=== PATIENT | female | born 1985 | race African-American/Black ===

== ENCOUNTER 2020-10-24 09:57 | Outpatient (CLI) | payer OTHER ==
[2020-10-24 17:52] LABS: SARS-CoV-2 PCR by NAA Not Detected (NotDetected)
== END 2020-10-24 09:58 | disposition home or self-care (01) ==
LOC: CSHLAB 09:57
PROVIDERS: ATTEND Student in an Organized Health Care Education/Training Program
DX: Z20.822 Contact with and (suspected) exposure to COVID-19 (principal)
CPT/HCPCS: 87635; U0003; U0005

== ENCOUNTER 2021-12-31 15:34 | Emergency (ER) | payer BC, OTHER, SELFPAY ==
[2021-12-31 16:53] LABS: Bilirubin Neg (Negative); Blood, Urine 50 (Negative); Clarity Clear (Clear); Glucose, Urine (Dipstick) Normal (Negative); Ketone, Urine Negative (Negative); Leukocyte Negative (Negative); Nitrite Negative (Negative); Protein, Urine (Dipstick) 15 mg/dl (Neg-Trace)
[2021-12-31 16:56] LABS: #Eosinphils 0.1 10x3/uL (0.0-0.5); #Monocytes 0.6 10x3/uL (0.0-1.1); #Neutrophils 3.8 10x3/uL (1.5-8.4); %Basophils 0.6 % (0.0-2.0); %Eosinophils 0.9 % (0.0-6.0); %Lymphocytes 32.6 % (18.0-47.0); %Monocytes 8.9 % (0.0-10.0); %Neutrophils 56.7 % (40.0-75.0); Hemoglobin 11.2 g/dL (12.0-15.5); Mean Corpuscular HGB CONC 33.5 g/dL (32.0-36.0); Mean Corpuscular Hemoglobin 31.8 pg (27.0-33.0); Mean Corpuscular Volume 94.9 fl (81.6-98.3); Mean Platelet Volume 8.6 fl (7.4-10.4); Platelet Count 372 10x3/uL (150-450); RBC Distribution Width 13.2 % (11.5-14.5); Red Blood Cell (RBC) Count 3.52 10x6/uL (3.90-5.03); White Blood Cell (WBC) Count 6.7 10x3/uL (3.5-10.5)
[2021-12-31 16:59] LABS: Squamous Epithelial 0-3 HPF (0-3); WBC/HPF 0-3 HPF (0-3)
[2021-12-31 17:00] LABS: Bacteria/HPF None Seen HPF (None Seen)
== END 2021-12-31 17:57 | disposition home or self-care (01) ==
LOC: CSHERS 15:34
DX: O20.9 Hemorrhage in early pregnancy, unspecified (principal); O16.1 Unspecified maternal hypertension, first trimester; Z3A.12 12 weeks gestation of pregnancy
CPT/HCPCS: 36415; 76856; 81003; 81015; 84702; 85025; 86900; 86901

== ENCOUNTER 2024-05-11 15:15 | Inpatient (IN) | payer OTHER ==
[2024-05-11 16:08] VITALS: BMI 33.4
[2024-05-11] MEDS ORDERED: hydrALAZINE 20 MG/ML VIAL SLOW IVP PRN (16:37)
[2024-05-11] MEDS: Acetaminophen 500 MG TAB PO SCH (17:32)
[2024-05-11 17:55] LABS: Influenza A by NAA Not Detected (NotDetected); Influenza B by NAA Not Detected (NotDetected); RSV by NAA Not Detected (NotDetected); SARS-CoV-2 NAA Rapid Test Not Detected (NotDetected)
[2024-05-11 18:22] LABS: Fetal Membranes Rupture No Membranes Rupture (No Rupture)
[2024-05-11 19:07] LABS: Bilirubin Neg (Negative); Blood, Urine Negative (Negative); Clarity Slightly Cloudy (Clear); Glucose, Urine (Dipstick) Normal (Negative); Ketone, Urine 5 mg/dL (Negative); Leukocyte 500 (Negative); Nitrite Negative (Negative); Protein, Urine (Dipstick) 30 mg/dl (Neg-Trace); Specific Gravity, Urine 1.025 (1.005-1.030)
[2024-05-11 19:13] LABS: CAUTI Indications for Culture Pregnancy; RBC/HPF 0-3 HPF (0-3)
[2024-05-11 19:14] LABS: Bacteria/HPF 2+ HPF (None Seen); Calcium Oxalate Crystals Rare HPF (None Seen); Mucous/LPF 2+ LPF (<2+)
[2024-05-11 19:17] LABS: Urine Culture Reflex Yes Yes
[2024-05-11] MEDS: Lactated Ringer's 1,000 ML IV SCH (19:37)
[2024-05-11] MEDS: metroNIDAZOLE 500 MG TAB PO SCH (21:58)
[2024-05-11] MEDS: Cephalexin 500 MG CAP PO SCH (21:58)
[2024-05-11] MEDS: Clotrimazole 2% 3 Day Vag Cr 22.2 GM TUBE VAG SCH (22:55)
[2024-05-12 02:46] LABS: #Basophils 0.02 10x3/uL (0.0-0.2); #Eosinophils 0.15 10x3/uL (0.0-0.5); #Monocytes 0.68 10x3/uL (0.0-1.1); #Neutrophils 4.88 10x3/uL (1.5-8.4); %Basophils 0.3 % (0.0-2.0); %Eosinophils 1.9 % (0.0-6.0); %Lymphocytes 26.3 % (18.0-47.0); %Monocytes 8.6 % (0.0-10.0); %Neutrophils 61.9 % (40.0-75.0); Hematocrit 31.8 % (34.9-44.5); Mean Corpuscular HGB CONC 34.6 g/dL (32.0-36.0); Mean Corpuscular Hemoglobin 33.6 pg (27.0-33.0); Mean Corpuscular Volume 97.2 fL (81.6-98.3); Mean Platelet Volume 9.9 fL (7.4-10.4); Platelet Count 224 10x3/uL (150-450); RBC Distribution Width 14.4 % (11.5-14.5); Red Blood Cell (RBC) Count 3.27 10x6/uL (3.90-5.03); White Blood Cell (WBC) Count 7.9 10x3/uL (3.5-10.5)
[2024-05-12] MEDS ORDERED: CEFAZOLIN 2 GM in Sodium Chloride 0.9% 100 ML IVPB SCH (03:00)
[2024-05-12 03:20] LABS: HBsAg Index 0.23 S/CO (0-0.99); HIV (1/2) Antibody/Antigen Non-Reactive (NonReactive); Hep B Surf Ag - L&D Non-Reactive S/CO (NonReactive); Syphilis Antibody Nonreactive (Nonreactive); Syphilis Antibody Index 0.03 S/CO (<1.00 Non-Reactive)
[2024-05-12] MEDS ORDERED: Diphenoxylate HCl/Atropine Tablet PO PRN (04:28)
[2024-05-12] MEDS ORDERED: Misoprostol 200 MCG TAB PR PRN (04:36)
[2024-05-12] MEDS ORDERED: Lanolin Ointment 7 GM TUBE TOP PRN (04:36)
[2024-05-12] MEDS ORDERED: Promethazine HCl 25 MG/ML VIAL IM PRN ×2 (04:36→04:47)
[2024-05-12] MEDS ORDERED: diphenhydrAMINE 25 MG CAP PO PRN (04:36)
[2024-05-12] MEDS ORDERED: Bisacodyl 10 MG SUPP PR PRN (04:36)
[2024-05-12] MEDS ORDERED: Ondansetron PF 4 MG/2 ML Vial IVP PRN ×2 (04:36→04:47)
[2024-05-12] MEDS ORDERED: Meperidine HCl/PF 25 MG (1 mL) VIAL SLOW IVP PRN (04:47)
[2024-05-12] MEDS ORDERED: Moisturizing Cream (Eucerin) 113 GM JAR TOP PRN (04:47)
[2024-05-12] MEDS ORDERED: fentaNYL 50 mcg/mL 1 mL Vial SLOW IVP PRN (04:47)
[2024-05-12] MEDS ORDERED: Naloxone HCl 0.4 mg/ml Vial IV PRN (04:47)
[2024-05-12] MEDS ORDERED: Morphine 4 MG/ML VIAL SLOW IVP PRN (04:47)
[2024-05-12] MEDS ORDERED: Naloxone HCl 0.4 mg/ml Vial IVP PRN ×2 (04:47)
[2024-05-12] MEDS ORDERED: Ketorolac Tromethamine 30 MG (1 mL) VIAL IVP SCH (05:00)
[2024-05-12] MEDS ORDERED: Communication Order-Pharmacy FS SCH (05:00)
[2024-05-12 05:04] LABS: PTT 27.4 sec (22.0-33.0); Prothrombin Time 11.3 sec (9.5-12.1)
[2024-05-12 08:05] LABS: Hematocrit 26.2 % (34.9-44.5); Hemoglobin 9.1 g/dL (12.0-15.5)
[2024-05-12] MEDS: CEFAZOLIN 2 GM VIAL ONE (09:20)
[2024-05-12] MEDS: fentaNYL 50 mcg/mL 1 mL Vial ONE (09:21)
[2024-05-12] MEDS: Tranexamic Acid 1,000 MG/10 ML VIAL ONE ×2 (09:21→09:23)
[2024-05-12] MEDS: Morphine PF 10 MG/10 ML VIAL ONE (09:21)
[2024-05-12] MEDS: ePHEDrine Sulfate 50 MG/10 ML VIAL ONE (09:21)
[2024-05-12] MEDS: Misoprostol 200 MCG TAB ONE (09:21)
[2024-05-12] MEDS: Methylergonovine 0.2 MG/ML VIAL ONE (09:21)
[2024-05-12] MEDS: Carboprost 250 MCG/ML AMP ONE (09:21)
[2024-05-12] MEDS: Ondansetron PF 4 MG/2 ML Vial ONE (09:22)
[2024-05-12] MEDS: PHENYLEPHRINE-NS 100 MCG/ML 10 ML SYRINGE ONE (09:22)
[2024-05-12] MEDS: Azithromycin 500 MG in Sodium Chloride 0.9% 250 ML 250 ML IVPB SCH (09:22)
[2024-05-12] MEDS: Famotidine/PF 20 mg/2ml Vial ONE (09:22)
[2024-05-12] MEDS: Oxytocin 10 UNITS/ML VIAL ONE ×3 (09:22→09:23)
[2024-05-12] MEDS: Poractant Alfa 120 MG/1.5 ML SUV ONE (09:23)
[2024-05-12] MEDS: Ketorolac Tromethamine 30 MG (1 mL) VIAL ONE (09:23)
[2024-05-12] MEDS: Midazolam HCl 2 mg/2 ml Vial ONE (09:23)
[2024-05-12] MEDS: Boostrix 0.5 ML (Tdap) VIAL (>/=7 yrs of age) IM ONE (09:23)
[2024-05-12] MEDS: Docusate 100 MG CAP PO SCH (09:53)
[2024-05-12] MEDS: Ferrous Sulfate 325 MG TAB PO SCH (09:53)
[2024-05-12] MEDS: Ketorolac Tromethamine 30 MG (1 mL) VIAL IVP PRN (10:41)
[2024-05-12] MEDS: Ondansetron PF 4 MG/2 ML Vial IVP PRN (15:38)
[2024-05-12 21:47] LABS: #Basophils 0.03 10x3/uL (0.0-0.2); #Eosinophils 0.03 10x3/uL (0.0-0.5); #Monocytes 0.81 10x3/uL (0.0-1.1); #Neutrophils 8.23 10x3/uL (1.5-8.4); %Basophils 0.3 % (0.0-2.0); %Eosinophils 0.3 % (0.0-6.0); %Lymphocytes 12.2 % (18.0-47.0); %Monocytes 7.8 % (0.0-10.0); Hematocrit 25.1 % (34.9-44.5); Hemoglobin 8.6 g/dL (12.0-15.5); Mean Corpuscular HGB CONC 34.3 g/dL (32.0-36.0); Mean Corpuscular Hemoglobin 33.7 pg (27.0-33.0); Mean Corpuscular Volume 98.4 fL (81.6-98.3); Mean Platelet Volume 10.1 fL (7.4-10.4); Platelet Count 209 10x3/uL (150-450); RBC Distribution Width 14.3 % (11.5-14.5); Red Blood Cell (RBC) Count 2.55 10x6/uL (3.90-5.03); White Blood Cell (WBC) Count 10.4 10x3/uL (3.5-10.5)
[2024-05-12] MEDS: diphenhydrAMINE 50 MG/ML VIAL IVP PRN (22:00)
[2024-05-12] MEDS: cefTRIAXone\\ROCEPHIN 1 GM in Sodium Chloride 0.9% 100 ML IVPB SCH (22:00)
[2024-05-13] MEDS: metroNIDAZOLE 500 MG in Premix 1 BAG IVPB SCH (00:18)
[2024-05-13] MEDS: Simethicone Chewable 80 MG TAB PO PRN (00:21)
[2024-05-13 04:09] LABS: Hematocrit 23.8 % (34.9-44.5); Mean Corpuscular HGB CONC 33.6 g/dL (32.0-36.0); Mean Corpuscular Hemoglobin 32.8 pg (27.0-33.0); Mean Corpuscular Volume 97.5 fL (81.6-98.3); Mean Platelet Volume 9.6 fL (7.4-10.4); Platelet Count 200 10x3/uL (150-450); RBC Distribution Width 14.2 % (11.5-14.5); Red Blood Cell (RBC) Count 2.44 10x6/uL (3.90-5.03); White Blood Cell (WBC) Count 10.5 10x3/uL (3.5-10.5)
[2024-05-13] MEDS: HYDROcodone/Acetaminophen 5/325 mg Tablet PO PRN ×2 (06:12→13:51)
[2024-05-13] MEDS: Ibuprofen 800 MG TAB PO SCH (10:28)
[2024-05-13] MEDS: HYDROcodone/Acetaminophen 5/325 mg Tablet PO SCH (10:53)
[2024-05-13] MEDS: Sodium Ferric Gluconate 250 MG in Sodium Chloride 0.9% 250 ML 250 ML IVPB SCH (11:40)
[2024-05-13 13:32] LABS: Group B Streptococcus by PCR Not Detected (NotDetected)
[2024-05-14] MEDS: Cyclobenzaprine 10 MG TAB PO SCH (10:31)
[2024-05-14 16:52] LABS: #Basophils 0.03 10x3/uL (0.0-0.2); #Monocytes 0.72 10x3/uL (0.0-1.1); %Basophils 0.3 % (0.0-2.0); %Eosinophils 0.9 % (0.0-6.0); %Lymphocytes 17.9 % (18.0-47.0); %Monocytes 6.8 % (0.0-10.0); Hematocrit 23.6 % (34.9-44.5); Hemoglobin 7.9 g/dL (12.0-15.5); Mean Corpuscular HGB CONC 33.5 g/dL (32.0-36.0); Mean Corpuscular Hemoglobin 32.9 pg (27.0-33.0); Mean Corpuscular Volume 98.3 fL (81.6-98.3); Mean Platelet Volume 9.2 fL (7.4-10.4); Platelet Count 242 10x3/uL (150-450); RBC Distribution Width 14.5 % (11.5-14.5); White Blood Cell (WBC) Count 10.6 10x3/uL (3.5-10.5)
[2024-05-14] MEDS: HYDROcodone/Acetaminophen 10/325 mg Tablet PO SCH (19:23)
[2024-05-15] MEDS: HYDROcodone/Acetaminophen 10/325 mg Tablet PO PRN ×2 (01:38→13:19)
[2024-05-15] MEDS: Melatonin 3 MG TAB PO SCH (01:39)
[2024-05-15 07:46] VITALS: BP 108/58; TEMP 97.8
[2024-05-15] MEDS: Fluconazole 100 MG TAB PO SCH (08:52)
[2024-05-15] MEDS: metroNIDAZOLE 250 MG TAB PO SCH (19:13)
== END 2024-05-15 18:50 | disposition home or self-care (01) | DRG 783 ==
LOC: CSHLD/OP 15:15 → OBSVTOIN 23:44 → CSHLD 23:44 → CSHPP 05-12 08:00
PROVIDERS: ADMIT Family Medicine; ATTEND Family Medicine
PROC: 10D00Z1 Extraction of Products of Conception, Low, Open Approach (ICD-10-PCS; principal; 2024-05-12)
PROC: 0UB70ZZ Excision of Bilateral Fallopian Tubes, Open Approach (ICD-10-PCS; 2024-05-12)
DX: O32.1XX1 Maternal care for breech presentation, fetus 1 (principal); O75.3 Other infection during labor; O10.92 Unspecified pre-existing hypertension complicating childbirth; O72.1 Other immediate postpartum hemorrhage; O98.82 Other maternal infectious and parasitic diseases complicating childbirth; O99.02 Anemia complicating childbirth; O30.043 Twin pregnancy, dichorionic/diamniotic, third trimester; Z3A.34 34 weeks gestation of pregnancy; Z37.2 Twins, both liveborn; Z85.3 Personal history of malignant neoplasm of breast; B37.31 Acute candidiasis of vulva and vagina; B96.89 Other specified bacterial agents as the cause of diseases classified elsewhere
CPT/HCPCS: 0241U; 36415; 51702; 76700; 76817; 76819; 81001; 84112; 85025; 85027; 85384; 86780; 86850; 86900; 86901; 87086; 87340; 87389; 87480; 87510; 87653; 87660; 88302; 88307; 99285; G0378; J0696; J1200; J1885; J2250; J2274; J2405; J2590; J2916; J3010; J3490; J7050; J7120